=== PATIENT | female | born 1955 | race African-American/Black ===

== ENCOUNTER 2020-02-24 11:25 | Emergency (ER) | payer MEDICAID ==
[~2020-02-24] VITALS: Ht 167.6 cm; Wt 94.6 kg
[2020-02-24 12:53] LABS: BASOPHILS % (AUTO) 0 % (0-1); EOSINOPHILS % (AUTO) 1 % (1-7); LYMPHOCYTES % (AUTO) 23 % (22-44); MEAN CORPUSCULAR HEMOGLOBIN 30.8 pg (27.0-34.8); MEAN CORPUSCULAR HGB CONC 33.2 g/dL (32.4-35.8); MEAN PLATELET VOLUME 9.6 fL (7.4-10.4); MONOCYTES % (AUTO) 6 % (2-9); NEUTROPHILS % (AUTO) 69 % (42-75); PLATELET COUNT 270 x10^3/uL (130-400); RED CELL DISTRIBUTION WIDTH 13.3 % (9.6-15.2)
[2020-02-24 12:55] LABS: MD NO
[2020-02-24 13:05] LABS: ALANINE AMINOTRANSFERASE 15 U/L (12-78); ALBUMIN 3.1 g/dL (3.4-5.0); ANION GAP 7 mmol/L (5-15); CHLORIDE 107 mmol/L (98-107); CREATININE 1.95 mg/dL (0.55-1.02)
[2020-02-24 13:07] LABS: ALKALINE PHOSPHATASE 148 U/L (45-117); BILIRUBIN,TOTAL 0.3 mg/dL (0.2-1.0); TOTAL PROTEIN 8.1 g/dL (6.4-8.2)
--- NOTE | 2020-02-24 14:10 | NUR ---
QUALITY LIAISON: PT AMBULATORY TO ROOM FROM LOBBY
[2020-02-24 14:30] VITALS: BP 186/102
[2020-02-24] MEDS ORDERED: MORPHINE SULFATE 4 MG/ML, 1ML IVPush PRN (14:30)
[2020-02-24] MEDS ORDERED: SODIUM CHLORIDE 0.9% 1,000ML IVBOLUS ONE (14:30)
[2020-02-24] MEDS ORDERED: MAALOX/HYOSCYAMINE/LIDOCAINE 45 ML BTL PO ONE (14:30)
[2020-02-24] MEDS ORDERED: FAMOTIDINE 20 MG/2 ML IVPush ONE (14:30)
[2020-02-24] MEDS ORDERED: SODIUM CHLORIDE FLUSH 10ML SYR IVF ONE (14:30)
[2020-02-24] MEDS ORDERED: MORPHINE SULFATE 4 MG/ML, 1ML ONE (14:38)
[2020-02-24] MEDS ORDERED: FAMOTIDINE 20 MG/2 ML ONE (14:38)
[2020-02-24] MEDS ORDERED: MAALOX/HYOSCYAMINE/LIDOCAINE 45 ML BTL ONE (14:38)
[2020-02-24 15:03] LABS: MICROSCOPIC INDICATED
== END 2020-02-24 15:58 | disposition home or self-care (01) ==
LOC: ED 15:10
DX: K29.00 Acute gastritis without bleeding (principal); R10.13 Epigastric pain; R11.2 Nausea with vomiting, unspecified; M54.9 Dorsalgia, unspecified; I10 Essential (primary) hypertension; Z90.89 Acquired absence of other organs; Z90.49 Acquired absence of other specified parts of digestive tract
CPT/HCPCS: 36415; 74176; 80053; 81001; 83690; 85025; 96361; 96374; 96375; 99284; J2270; J7030

== ENCOUNTER 2020-05-22 00:32 | Emergency (ER) | payer MEDICAID ==
[~2020-05-22] VITALS: Ht 165.1 cm; Wt 92.4 kg
--- NOTE | 2020-05-22 01:18 | NUR ---
Claudia HOWE notified of repeat BP 211/118. patient reports not taking her BP medication for "a few days . they are in my car.". patient reports that her car is outside as she drove here but she had to put all her belongings in her car because "my daughter is shampooing". no IV needed at this time. call krishnamurthy in reach. EKG completed. safety maintained
--- NOTE | 2020-05-22 01:30 | NUR ---
patient resting in bed in NAD. connected to loan specialist. clonidine ordered administered. call krishnamurthy in reach. safety maintained.NSR
[2020-05-22 01:32] LABS: BASOPHILS % (AUTO) 1 % (0-1); EOSINOPHILS % (AUTO) 1 % (1-7); LYMPHOCYTES % (AUTO) 25 % (22-44); MEAN CORPUSCULAR HEMOGLOBIN 30.2 pg (27.0-34.8); MEAN CORPUSCULAR HGB CONC 33.3 g/dL (32.4-35.8); MEAN PLATELET VOLUME 9.1 fL (7.4-10.4); MONOCYTES % (AUTO) 6 % (2-9); NEUTROPHILS % (AUTO) 67 % (42-75); PLATELET COUNT 329 x10^3/uL (130-400); RED BLOOD COUNT 3.72 x10^6/uL (3.82-5.3); RED CELL DISTRIBUTION WIDTH 15.1 % (9.6-15.2)
[2020-05-22 01:33] LABS: MD NO
[2020-05-22 01:41] LABS: ALANINE AMINOTRANSFERASE 18 U/L (12-78); ALBUMIN 3.2 g/dL (3.4-5.0); ANION GAP 8 mmol/L (5-15); CALCIUM 9.2 mg/dL (8.5-10.1); CHLORIDE 109 mmol/L (98-107); CREATININE 1.82 mg/dL (0.55-1.02)
[2020-05-22 01:45] LABS: ALKALINE PHOSPHATASE 126 U/L (45-117); BILIRUBIN,TOTAL 0.3 mg/dL (0.2-1.0); TOTAL PROTEIN 8.5 g/dL (6.4-8.2); TROPONIN I < 0.015 ng/mL (0.000-0.045)
[2020-05-22] MEDS ORDERED: LABETALOL 5MG/ML, 20ML IVPush ONE (02:00)
[2020-05-22] MEDS ORDERED: NITROGLYCERIN OINT 2%, 1GM TP ONE ×2 (02:00→02:01)
[2020-05-22] MEDS ORDERED: SODIUM CHLORIDE FLUSH 10ML SYR IVF ONE (02:00)
[2020-05-22] MEDS ORDERED: LABETALOL 5MG/ML, 20ML ONE (02:02)
--- NOTE | 2020-05-22 02:30 | NUR ---
PATIENT RESTING IN BED. SAFETY MAINTAINED. PLEASE SEE DOWNTIME PAPER CHARTING FOR ADDITIONAL VITAL SIGNS AND NOTES.
[2020-05-22] MEDS ORDERED: METHOCARBAMOL 750 MG TABLET ONE (03:23)
--- NOTE | 2020-05-22 03:24 | NUR ---
patient aware of dc. reports she has a very short commute home "its right down the street like a block or two". RN advised patient that the medication, robaxin, that is ordered for her to take prior to discharge is a medication that can delay her reaction/response time and it is advised she not drive while taking this medication and that she should drive straight home after discharge. she acknowledges teaching and states "oh, i will". she refuses toradol that is ordered as she now states "i have kidney failure and im not supposed to take NSAID medication". i notified Claudia HOWE of this. Nitro paste will be removed prior to dc. VS stabilizing with treatment
[2020-05-22] MEDS ORDERED: METHOCARBAMOL 750 MG TABLET PO ONE (03:30)
[2020-05-22] MEDS ORDERED: KETOROLAC 30 MG/1 ML IVPush ONE (03:30)
--- NOTE | 2020-05-22 03:49 | NUR ---
NITRO PASTE REMOVED AND WIPED EXCESS WITH DRY WASH CLOTH AND THEN MOISTENED WASHCLOTH. DISCHARGE INSTRUCTIONS REVIEWED WITH PATIENT. NO FURTHER QUESTIONS. ROBAXIN ADMINISTERED AND INSTRUCTED PATIENT TO DRIVE STRAIGHT HOME WITHOUT STOPPING. SHE STATES SHE LIVES A FEW MINUTES AWAY. PATIENT UNDERSTOOD RISKS OF DRIVING AFTER TAKING THIS MEDICATION PRIOR TO DISCHARGE. PRESCRIPTION HANDED TO PATIENT. ALL PERSONAL BELONGINGS WITH PATIENT ON DC. STEADY GAIT TO LOBBY. IV REMOVED PER DC PROTOCOL.
[2020-05-22 03:52] VITALS: BP 175/101
== END 2020-05-22 03:55 | disposition home or self-care (01) ==
LOC: ED 01:08
DX: J18.9 Pneumonia, unspecified organism (principal); I12.9 Hypertensive chronic kidney disease with stage 1 through stage 4 chronic kidney disease, or unspecified chronic kidney disease; N18.9 Chronic kidney disease, unspecified; R07.9 Chest pain, unspecified; Z76.0 Encounter for issue of repeat prescription; M54.6 Pain in thoracic spine; E78.5 Hyperlipidemia, unspecified; E11.9 Type 2 diabetes mellitus without complications; Z90.89 Acquired absence of other organs; Z90.49 Acquired absence of other specified parts of digestive tract
CPT/HCPCS: 36415; 71045; 80053; 84484; 85025; 93005; 96374; 99285